=== PATIENT | female | born 1965 | race African-American/Black ===

== ENCOUNTER 2018-10-19 00:25 | Emergency (ER) | payer MEDICARE ==
[~2018-10-19] VITALS: Ht 177.8 cm; Wt 81.6 kg
[~2018-10-19 00:25] MED LIST: ACETAMINOPHEN500 M6 PO; ATIVAN1 MG ORAL; ATIVAN2 MG PO; BACTRIM DS TAB1 EAC1 ORAL; DOCUSATE SODIU100 MG PO; ENEMA133 M1 RC; HYDROCHLOROTHIA25 MG ORAL; K-DUR20 MEQ PO; KCL2 MEQ/ML PO; KEFLEX500 MG ORAL; L-ARGININE1000 MG PO; LORAZEPAM0.5 MG ORAL; LORAZEPAM1 MG ORAL; METHADONE HCL10 MG PO; METHADONE HCL5 MG PO; MIRALAX17 G1 PO; NASONEX17 GM NASAL; NYSTATIN OINT15 GM TOPIC; POMEGRANATE250 MG PO; PROTONIX40 M2 PO; PROTONIX40 MG PO; PROVENTIL HFA6.7 G1 IH; PROZAC10 MG ORAL; PROZAC20 MG PO; REGLAN5 MG ORAL; SALINE NASAL SP45 ML NASAL; VANCOMYCIN1 GM/2502 IVPB; VITAMIN B COMP1 EAC2 ORAL; VITAMIN B-1100 MG ORAL; VITAMIN B-12500 MCG ORAL; VITAMIN C500 M1 ORAL; VITAMIN D-32000 UNI1 PO; WELLBUTRIN XL150 M2 PO; ZOFRAN4 M1 ORAL; ZYRTEC10 MG ORAL
[2018-10-19] MEDS ORDERED: FUROSEMIDE40 MG ORAL (00:43)
[2018-10-19 00:50] VITALS: BP 182/97
[2018-10-19] MEDS ORDERED: Morphine Sulfate 4mg/ml Inj (IV/IM USE ONLY) IVP ONE ×2 (01:00→04:45)
[2018-10-19 01:46] LABS: BASOPHILS % (AUTO) 1.1 % (0.0-2.0); EOSINOPHILS % (AUTO) 2.1 % (0.0-3.0); HEMATOCRIT 39.5 % (37.0-47.0); LYMPHOCYTES % (AUTO) 17.6 % (20.0-45.0); MEAN CORPUSCULAR VOLUME 92 FL (80-99); MONOCYTES % (AUTO) 11.2 % (1.0-10.0); NEUTROPHILS % (AUTO) 68.1 % (45.0-75.0); PLATELET COUNT 279 K/UL (150-450); RED CELL DISTRIBUTION WIDTH 12.6 % (11.6-14.8); WHITE BLOOD COUNT 8.8 K/UL (4.8-10.8)
[2018-10-19 01:56] LABS: ANION GAP 9 mmol/L (5-15); BLOOD UREA NITROGEN 12 mg/dL (7-18); CALCIUM 8.5 MG/DL (8.5-10.1); CARBON DIOXIDE 26 MMOL/L (21-32); CHLORIDE 103 MMOL/L (98-107); CREATININE 0.8 MG/DL (0.55-1.30); POTASSIUM 3.9 MMOL/L (3.5-5.1); SODIUM 138 MMOL/L (136-145)
[2018-10-19 02:00] LABS: ALANINE AMINOTRANSFERASE 22 U/L (12-78); ALBUMIN 3.7 G/DL (3.4-5.0); ALBUMIN/GLOBULIN RATIO 0.9 (1.0-2.7); ALKALINE PHOSPHATASE 141 U/L (46-116); ASPARTATE AMINO TRANSFERASE 19 U/L (15-37); BILIRUBIN,TOTAL 0.5 MG/DL (0.2-1.0)
[2018-10-19 02:14] LABS: APPEARANCE,URINE CLEAR; BILIRUBIN, URINE NEGATIVE (NEGATIVE); COLOR,URINE YELLOW; GLUCOSE, URINE (UA) NEGATIVE (NEGATIVE); KETONES,URINE NEGATIVE (NEGATIVE); LEUKOCYTE ESTERASE ,URINE 1+ (NEGATIVE); NITRITE,URINE NEGATIVE (NEGATIVE); PH,URINE 6 (4.5-8.0); PROTEIN,URINE NEGATIVE (NEGATIVE); UROBILINOGEN,URINE NORMAL MG/DL (0.0-1.0)
[2018-10-19 02:40] VITALS: BP 152/81
[2018-10-19 04:36] VITALS: BP 141/63
[2018-10-19 05:29] VITALS: BP 135/70
[2018-10-19 06:31] VITALS: BP 135/70
--- NOTE | 2018-10-19 06:34 | Emergency Room Report ---
History of Present Illness General Chief Complaint: Headache Source: Patient Present Illness HPI 53-year-old female presents ED for evaluation. Patient walked in stating that she may have had a stroke. States that for the last 3 days she's been having increased headache and feels foggy and lightheaded. States his light sensitivity. Denies nuchal rigidity. Denies fevers or chills. Denies nausea or vomiting. Denies slurred speech or facial droop. Denies any arm or leg weakness. States she has history of pseudotumor cerebri. States she hasn't had a headache like this in many years. Got gradually worse over 3 days. No other aggravating relieving factors. Denies any other associated symptoms Allergies: Coded Allergies: CLARITHROMYCIN (Verified Allergy, Severe, ITCHING,SWELLING, 02/16/12) PROCHLORPERAZINE EDISYLATE (Unverified Allergy, Severe, rash, 03/30/13) PROCHLORPERAZINE MALEATE (Unverified Allergy, Severe, rash, 03/30/13) PROMETHAZINE HCL (Unverified Allergy, Severe, rash, 03/30/13) METOCLOPRAMIDE (Unverified Allergy, Unknown, 05/06/14) PROCHLORPERAZINE (Verified Adverse Reaction, Severe, PANIC ATTACK, 02/16/12 ) PROMETHAZINE (Verified Adverse Reaction, Severe, PANIC ATTACK, 02/16/12) Patient History Past Medical History: HTN, asthma, other - pseudotumor cerebri Past Surgical History: none Pertinent Family History: none Social History: Denies: smoking, alcohol use, drug use Last Menstrual Period: sep 21 2018 Now: No Immunizations: UTD Reviewed Nursing Documentation: PMH: Agreed; PSxH: Agreed Nursing Documentation-PMH Hx Cardiac Problems: Yes - PFO Hx Asthma: Yes Hx Diabetes: Yes Hx Cancer: No Hx Gastrointestinal Problems: Yes - DUMPING SYNDROME Hx Neurological Problems: Yes - PSEUDO TUMOR CEREBRI Hx Concentration Difficulty: Yes - BEC OF HEADACHE Hx Dizziness: Yes Hx Syncope: Yes Hx Headaches: Yes Hx Weakness: Yes Hx Fatigue: Yes - "SUPER TIRED ALL THE TIME" Review of Systems All Other Systems: negative except mentioned in HPI Physical Exam Vital Signs Date Time Temp Pulse Resp B/P (MAP) Pulse Ox O2 Delivery O2 Flow Rate FiO2 11/29/18 00:38 98.4 76 16 182/97 100 Room Air Sp02 EP Interpretation: reviewed, normal General Appearance: no apparent distress, alert, GCS 15, non-toxic Head: normocephalic, atraumatic Eyes: bilateral eye normal inspection, bilateral eye PERRL, bilateral eye EOMI , bilateral eye photophobia ENT: hearing grossly normal, normal pharynx, no angioedema, normal voice Neck: full range of motion, supple, no meningismus, supple/symm/no masses Respiratory: chest non-tender, lungs clear, normal breath sounds, speaking full sentences Cardiovascular #1: regular rate, rhythm, no edema Cardiovascular #2: 2+ carotid (R), 2+ carotid (L), 2+ radial (R), 2+ radial (L) , 2+ dorsalis pedis (R), 2+ dorsalis pedis (L) Gastrointestinal: normal bowel sounds, non tender, soft, non-distended, no guarding, no rebound Rectal: deferred Genitourinary: normal inspection, no CVA tenderness Musculoskeletal: back normal, gait/station normal, normal range of motion, non- tender Neurologic: alert, oriented x3, responsive, motor strength/tone normal, sensory intact, speech normal Psychiatric: judgement/insight normal, memory normal, mood/affect normal, no suicidal/homicidal ideation Reflexes: 3+ bicep (R), 3+ bicep (L), 3+ tricep (R), 3+ tricep (L), 3+ knee (R) , 3+ knee (L) Skin: normal color, no rash, warm/dry, well hydrated Lymphatic: no adenopathy Medical Decision Making Diagnostic Impression: Primary Impression: Headache Qualified Codes: R51 - Headache Additional Impression: Opioid dependence Qualified Codes: F11.29 - Opioid dependence with unspecified opioid-induced disorder ER Course Hospital Course 53-year-old female presents to ED complaining of headaches, + photophobia Differential diagnoses include: tension headache, migraine, dehydration, intracranial bleed Clinical course Patient placed on stretcher. After initial history and physical I ordered labs , IV fluids, pain meds, CT Head Labs reviewed- electrolytes okay, no leukocytosis, hemoglobin/hematocrit stable EKG - NSR, no acute ischemic changes interpreted by wy CT head no acute process Upon reassessment patient states pain has improved. There was no slurred speech. No facial droop. No sensory deficit. No motor deficit. Unlikely CVA. No nuchal rigidity or fever Discussed findings with patient. Safe for discharge and close outpatient follow -up. Likely migraine. On CURES she does receiving monthly prescriptions for Ativan and methadone i. I feel this is a highly complex case requiring extensive working including EKG/Rhythm strip, Xray/CT/US, Blood/urine lab work, repeat exams while in ED, and administration of strong opiates/narcotics for pain control, admission to hospital or close patient follow up. Diagnosis - headache stable and discharged to home. f/up with PMD. return to ED if symptoms recur/ worsen. Labs Test 10/19/18 01:30 10/19/18 02:02 White Blood Count 8.8 K/UL (4.8-10.8) Red Blood Count 4.30 M/UL (4.20-5.40) Hemoglobin 13.0 G/DL (12.0-16.0) Hematocrit 39.5 % (37.0-47.0) Mean Corpuscular Volume 92 FL (80-99) Mean Corpuscular Hemoglobin 30.3 PG (27.0-31.0) Mean Corpuscular Hemoglobin Concent 33.0 G/DL (32.0-36.0) Red Cell Distribution Width 12.6 % (11.6-14.8) Platelet Count 279 K/UL (150-450) Mean Platelet Volume 7.5 FL (6.5-10.1) Neutrophils (%) (Auto) 68.1 % (45.0-75.0) Lymphocytes (%) (Auto) 17.6 % (20.0-45.0) Monocytes (%) (Auto) 11.2 % (1.0-10.0) Eosinophils (%) (Auto) 2.1 % (0.0-3.0) Basophils (%) (Auto) 1.1 % (0.0-2.0) Sodium Level 138 MMOL/L (136-145) Potassium Level 3.9 MMOL/L (3.5-5.1) Chloride Level 103 MMOL/L (98-107) Carbon Dioxide Level 26 MMOL/L (21-32) Anion Gap 9 mmol/L (5-15) Blood Urea Nitrogen 12 mg/dL (7-18) Creatinine 0.8 MG/DL (0.55-1.30) Estimat Glomerular Filtration Rate > 60 mL/min (>60) Glucose Level 92 MG/DL (74-106) Calcium Level 8.5 MG/DL (8.5-10.1) Total Bilirubin 0.5 MG/DL (0.2-1.0) Aspartate Amino Transf (AST/SGOT) 19 U/L (15-37) Alanine Aminotransferase (ALT/SGPT) 22 U/L (12-78) Alkaline Phosphatase 141 U/L (46-116) Total Protein 7.6 G/DL (6.4-8.2) Albumin 3.7 G/DL (3.4-5.0) Globulin 3.9 g/dL Albumin/Globulin Ratio 0.9 (1.0-2.7) Salicylates Level 1.3 ug/mL (2.8-20) Acetaminophen Level < 2 MCG/ML (10-30) Serum Alcohol < 3 mg/dL Urine Color Yellow Urine Appearance Clear Urine pH 6 (4.5-8.0) Urine Specific Singer 1.015 (1.005-1.035) Urine Protein Negative (NEGATIVE) Urine Glucose (UA) Negative (NEGATIVE) Urine Ketones Negative (NEGATIVE) Urine Blood 1+ (NEGATIVE) Urine Nitrite Negative (NEGATIVE) Urine Bilirubin Negative (NEGATIVE) Urine Urobilinogen Normal MG/DL (0.0-1.0) Urine Leukocyte Esterase 1+ (NEGATIVE) Urine RBC 0-2 /HPF (0 - 2) Urine WBC 0-2 /HPF (0 - 2) Urine Squamous Epithelial Cells Few /LPF (NONE/OCC) Urine Bacteria None /HPF (NONE) Urine Opiates Screen Negative (NEGATIVE) Urine Barbiturates Screen Negative (NEGATIVE) Phencyclidine (PCP) Screen Negative (NEGATIVE) Urine Amphetamines Screen Negative (NEGATIVE) Urine Benzodiazepines Screen Negative (NEGATIVE) Urine Cocaine Screen Negative (NEGATIVE) Urine Marijuana (THC) Screen Negative (NEGATIVE) EKG Diagnostic Results Rate: normal Rhythm: NSR ST Segments: no acute changes ASA given to the pt in ED: No Rhythm Strip Diag. Results EP Interpretation: yes Rhythm: NSR, no PVC's, no ectopy CT/MRI/US Diagnostic Results CT/MRI/US Diagnostic Results : Imaging Test Ordered: CT HEad Impression no acute process Last Vital Signs Date Time Temp Pulse Resp B/P (MAP) Pulse Ox O2 Delivery O2 Flow Rate FiO2 10/19/18 04:36 98.4 65 18 141/63 100 Room Air Status: improved Disposition: HOME, SELF-CARE Condition: Stable Referrals: NOT CHOSEN IPA/,REFERRING (PCP) Patient Instructions: General Headache Without Cause Tremaine Cee MD Oct 19, 2018 06:34
--- NOTE | 2018-10-19 10:42 | Diagnostic Imaging Report ---
Indications: Headache for one day Technique: Spiral acquisitions obtained through the brain. Angled axial and coronal 5 x 5 mm slices were reconstructed. Total dose length product 1368.19 mGycm. CTDI vol(s) 70.38 mGy. Dose reduction achieved using automated exposure control Comparison: 07/06/2014 Findings: No acute intercranial hemorrhage or edema. No mass effect nor midline shift. Normal dupree-white differentiation. Visualized orbits and sinuses are unremarkable. The calvarium is intact. There is mild age-related cortical volume loss. Findings are unchanged. Impression: Negative for acute intracranial bleed or mass effect This agrees with the preliminary interpretation provided overnight by [facility]. The CT scanner at [facility] is accredited by the [employer] and the scans are performed using protocols designed to limit radiation exposure to as low as reasonably achievable to attain images of sufficient resolution adequate for diagnostic evaluation.
== END 2018-10-19 05:29 | disposition home or self-care (01) ==
LOC: EMR 00:49
DX: R51 Headache (principal); F11.29 Opioid dependence with unspecified opioid-induced disorder; H53.149 Visual discomfort, unspecified; I10 Essential (primary) hypertension; J45.909 Unspecified asthma, uncomplicated; E11.9 Type 2 diabetes mellitus without complications; R53.83 Other fatigue; R42 Dizziness and giddiness; Z87.19 Personal history of other diseases of the digestive system; Z88.1 Allergy status to other antibiotic agents; Z88.8 Allergy status to other drugs, medicaments and biological substances
CPT/HCPCS: 36415; 70450; 80053; 80307; 81003; 85025; 96361; 96374; 96375; 96376; 99284; G0480; J2270; J2405; 80329